=== PATIENT | male | born 1990 | race American Indian/Alaskan Native ===

== ENCOUNTER 2019-07-26 18:32 | Emergency (ER) | payer SELFPAY ==
[2019-07-26] MEDS ORDERED: TETANUS,DIPH,PERTUSS(ACELL) VACCINE 0.5 ML SYRINGE IM ONE (20:00)
[2019-07-26] MEDS ORDERED: LIDOCAINE (1%) 10 MG/1 ML VIAL 20 ML MDV INFILTRATI ONE (20:00)
--- NOTE | 2019-07-26 20:00 | Event Note ---
ED Screening Note ED Screening Note: lip laceration to the upper lip his dog bit him, dogs shots are UTD unsure last tetanus immunization This initial assessment/diagnostic orders/clinical plan/treatment(s) is/are subject to change based on patients health status, clinical progression and re- assessment by fellow clinical providers in the ED. Further treatment and workup at subsequent clinical providers discretion. Patient/guardian urged not to elope from the ED as their condition may be serious if not clinically assessed and managed. Initial orders include: tetanus immunization
--- NOTE | 2019-07-26 21:51 | Emergency Department Report ---
ED Laceration HPI - HPI Chief Complaint: Animal Bite Stated Complaint: DOG SPLIT/PAIN Time Seen by Provider: 07/26/19 19:57 Occurred When: Today Laceration Symptoms: No Foreign Body Sensation, No Numbness, No Weakness, No Pain Other History: lip laceration to the upper lip. his dog bit him, dogs shots are UTD. unsure last tetanus immunization ED Review of Systems ROS: Stated complaint: DOG SPLIT/PAIN Other details as noted in HPI Comment: All other systems reviewed and negative ED Past Medical Hx - Past Medical History Previous Medical History?: No - Surgical History Past Surgical History?: No - Social History Smoking Status: Current Every Day Smoker - Medications Home Medications: Home Medications Medication Instructions Recorded Confirmed Last Taken Type Amoxicillin/K Clav Tab [Augmentin 1 tab PO Q12HR #20 tab 07/26/19 Unknown Rx 875 mg] Laceration Physical Exam - Exam General: Vital signs noted. No distress. Alert and acting appropriately. Wound Length (cm): 2 (upper lip through the vermilion line) Laceration Exam: Yes Normal Distal CMS, No Foreign Body, No Exposed Tendon, Vessel, or Nerve, No Tendon Injury ED Course Vital Signs 07/26/19 19:07 Temperature 98.6 F Pulse Rate 78 Respiratory 18 Rate Blood Pressure 146/90 O2 Sat by Pulse 95 Oximetry - Laceration /Wound Repair Upper Face Wound Location: face Wound Length (cm): 2 (upper lip vermilion line) Wound's Depth, Shape: into muscle Wound Explored: no foreign body removed Irrigated w/ Saline (ccs): 45 Betadine Prep?: Yes Anesthesia: 1% Lidocaine Volume Anesthetic (ccs): 3 Wound Debrided: minimal Wound Repaired With: sutures Suture Size/Type: 3:0, proline Number of Sutures: 2 Progress: Patient tolerated well Critical care attestation.: If time is entered above; I have spent that time in minutes in the direct care of this critically ill patient, excluding procedure time. ED Disposition Clinical Impression: Laceration of vermilion border of upper lip, Dog bite of vermilion of upper lip Disposition: [id number] TO HOME OR SELFCARE Is pt being admited?: No Does the pt Need Aspirin: No Condition: Stable Additional Instructions: Keep wound clean and dry. Return to the emergency room to have sutures removed in 5-7 days. Complete antibiotics as prescribed. Prescriptions: Amoxicillin/K Clav Tab [Augmentin 875 mg] 1 tab PO Q12HR #20 tab Forms: Accompanied Note
[2019-07-26 22:30] VITALS: BP 141/76
== END 2019-07-26 22:30 | disposition home or self-care (01) ==
LOC: ED 18:32
DX: S01.511A Laceration without foreign body of lip, initial encounter (principal); S01.551A Open bite of lip, initial encounter; F17.200 Nicotine dependence, unspecified, uncomplicated; W54.0XXA Bitten by dog, initial encounter; Y93.89 Activity, other specified; Y92.89 Other specified places as the place of occurrence of the external cause; Y99.8 Other external cause status
CPT/HCPCS: 90471; 90715